=== PATIENT | female | born 1980 | race Caucasian/White ===

== ENCOUNTER 2019-12-14 17:21 | Emergency (ER) | payer OTHER ==
[2019-12-14 17:40] VITALS: BMI 35.6
--- OUTSIDE RECORDS SUMMARY | 2019-12-14 17:51 | XMS ---
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 [Mass/volume] in normal styleCode="Bold"> Hugh hs Serum or Plasma Glucose Medical </content>111 Center MG/DL H<content styleCode="Italic s"> (74-106 MG/DL)</content> Creatinine 0.5-1.3 <content [facility] [Mass/volume] in styleCode="Bold"> Hugh hs Serum or Plasma Creatinine Medical </content>0.7 Center MG/DL<content styleCode="Italic s"> (0.5-1.3 MG/DL)</content> Calcium 8.4-10. <content [facility] [Mass/volume] in 2 styleCode="Bold"> Hugh hs Serum or Plasma Calcium Medical </content>9.6 Center MG/DL<content styleCode="Italic s"> (8.4-10.2 MG/DL)</content> UNK > 60 <content [facility] styleCode="Bold"> Stewart EGFR </content>99 Medical GFR<content Center styleCode="Italic s"> (> 60 GFR)</content> Aspartate 14-36 <content [facility] aminotransferase styleCode="Bold"> Hugh hs [Enzymatic Aspartate Medical activity/volume] Aminotransferase Center in Serum or Plasma (AST) </content>25 IU/L<content styleCode="Italic s"> (14-36 IU/L)</content> Albumin 3.5-5.0 <content [facility] [Mass/volume] in styleCode="Bold"> Hugh hs Serum or Plasma Albumin Medical </content>4.0 Center G/DL<content styleCode="Italic s"> (3.5-5.0 G/DL)</content> Alkaline 38-126 <content [facility] phosphatase styleCode="Bold"> Stewart [Enzymatic Alkaline Medical activity/volume] Phosphatase (ALP) Cente r in Serum or Plasma </content>66 IU/L<content styleCode="Italic s"> (38-126 IU/L)</content> Alanine 7-30 <content [facility] aminotransferase styleCode="Bold"> Hugh hs [Enzymatic Alanine Medical activity/volume] Aminotransferase Center in Serum or Plasma (ALT) </content>22 IU/L<content styleCode="Italic s"> (7-30 IU/L)</content> Bilirubin.total 0.2-1.3 <content [facility] [Mass/volume] in styleCode="Bold"> Hugh hs Serum or Plasma Bilirubin Total Medical </content>0.3 Center MG/DL<content styleCode="Italic s"> (0.2-1.3 MG/DL)</content> ID Date Data Source [id number] 09/04/2019 09:24:53 AM EDT [facility]I [facility] ([id number]) Name Value Range Interpretation Code Description Data Nano rce(s) Supporting Document(s ) 148 whole blood NEXTGEN ([facility]) ID Date Data Source Liver 08/11/2019 03:03:00 PM EDT [facility] Profile.[id number] Name Value Range Interpretation Description Data Sup porting Code Source(s) Document(s ) Bilirubin.total 0.2-1.3 Below low <content [facility] [Mass/volume] in normal styleCode="Bold"> Hugh hs Serum or Plasma Bilirubin Total Medical </content>< 0.2 Center MG/DL L<content styleCode="Italic s"> (0.2-1.3 MG/DL)</content> Aspartate 14-36 <content [facility] aminotransferase styleCode="Bold"> Hugh hs [Enzymatic Aspartate Medical activity/volume] Aminotransferase Center in Serum or Plasma (AST) </content>23 IU/L<content styleCode="Italic s"> (14-36 IU/L)</content> Alanine 7-30 <content [facility] aminotransferase styleCode="Bold"> Hugh hs [Enzymatic Alanine Medical activity/volume] Aminotransferase Center in Serum or Plasma (ALT) </content>21 IU/L<content styleCode="Italic s"> (7-30 IU/L)</content> Alkaline 38-126 <content [facility] phosphatase styleCode="Bold"> Stewart [Enzymatic Alkaline Medical activity/volume] Phosphatase (ALP) Cente r in Serum or Plasma </content>77 IU/L<content styleCode="Italic s"> (38-126 IU/L)</content> Albumin 3.5-5.0 <content [facility] [Mass/volume] in styleCode="Bold"> Hugh hs Serum or Plasma Albumin Medical </content>4.0 Center G/DL<content styleCode="Italic s"> (3.5-5.0 G/DL)</content> ID Date Data Source LIPID.[id number] 08/11/2019 03:03:00 PM EDT [facility] Name Value Range Interpretation Description Data Sup porting Code Source(s) Document(s ) UNK <content [facility] styleCode="Bold"> Stewart LDL-Cholesterol Medical </content> Center (Reference Range: not available)
<c ontent styleCode="xLocal PreformattedText" >Triglycerides are >250 mg/dl; therefore, the LDL calculation is invalid.
Chol esterol electrophoresis is recommended if medically appropriate.</con tent> Cholesterol -<200 <content [facility] [Mass/volume] styleCode="Bold"> Stewart in Serum or Cholesterol Medical Plasma </content>193 Center MG/DL<content styleCode="Italic s"> (-<200 MG/DL)</content> UNK > 60 Below low normal <content [facility] styleCode="Bold"> Stewart HDL- Cholesterol Medical </content>31 Center MG/DL L<content styleCode="Italic s"> (> 60 MG/DL)</content> Triglyceride < 150 Above high normal <content [facility] [Mass/volume] styleCode="Bold"> Stewart in Serum or Triglycerides Medical Plasma </content>335 Center MG/DL H<content styleCode="Italic s"> (< 150 MG/DL)</content> ID Date Data Source Hormones.[id number] 08/11/2019 03:03:00 PM EDT [facility] t [facility] Name Value Range Interpretation Description Data Sup porting Code Source(s) Document(s ) Thyrotropin 0.465-4. <content [facility] [Units/volume] 68 styleCode="Haider Stewart in Serum or d">Thyroid Medical Plasma by Stimulating Center Detection Hormone limit <= 0.05 </content>1.22 mIU/L MIU/L<content styleCode="Bree lics"> (0.465-4.68 MIU/L)</conten t> ID Date Data Source HematologyRou.[id number] 08/11/2019 03:03:00 PM EDT [facility] nt [facility] 0400 Name Value Range Interpretation Description Data Sup porting Code Source(s) Document(s ) Leukocytes 4.4-11.0 <content [facility] [#/volume] in styleCode="Bold Stewart Blood by ">White Blood Medical Automated count Cell Count Center </content>8.84 KCUMM<content styleCode="Ital ics"> (4.4-11.0 KCUMM)</content > Hematocrit 36.0-46. <content [facility] [Volume 0 styleCode="Bold Stewart Fraction] of ">Hematocrit Medical Blood by </content>43.6 Center Automated count %<content styleCode="Ital ics"> (36.0-46.0 %)</content> Erythrocytes 4.0-5.1 Above high <content [facility] [#/volume] in normal styleCode="Bold Stewart Blood by ">Red Blood Medical Automated count Cell Count Center </content>5.21 MCUMM H<content styleCode="Ital ics"> (4.0-5.1 MCUMM)</content > Erythrocyte mean 80.0-100 <content [facility] corpuscular .0 styleCode="Bold Stewart volume [Entitic ">Mean Medical volume] by Corpuscular Center Automated count Volume </content>83.7 FL<content styleCode="Ital ics"> (80.0-100.0 FL)</content> Hemoglobin 12.3-16. <content [facility] [Mass/volume] in 0 styleCode="Bold Stewart Blood ">Hemoglobin Medical </content>13.7 Center G/DL<content styleCode="Ital ics"> (12.3-16.0 G/DL)</content> Platelets 130-400 <content [facility] [#/volume] in styleCode="Bold Stewart Blood by ">Platelet Medical Automated count Count Center </content>263 KCUMM<content styleCode="Ital ics"> (130-400 KCUMM)</content > Erythrocyte mean 26.0-34. <content [facility] corpuscular 0 styleCode="Bold Stewart hemoglobin ">Mean Medical [Entitic mass] Corposcular Center by Automated Hemoglobin count </content>26.3 PG<content styleCode="Ital ics"> (26.0-34.0 PG)</content> Erythrocyte mean 32.0-37. Below low normal <content [facility] corpuscular 0 styleCode="Bold Stewart hemoglobin ">Mean Corpus. Medical concentration Hgb Center [Mass/volume] by Concentration Automated count (MCHC) </content>31.4 G/DL L<content styleCode="Ital ics"> (32.0-37.0 G/DL)</content> Platelet mean 8.0-11.0 Above high <content [facility] volume [Entitic normal styleCode="Bold Stewart volume] in Blood ">Mean Platelet Medical by Automated Volume Center count </content>12.2 FL H<content styleCode="Ital ics"> (8.0-11.0 FL)</content> Erythrocyte 11.5-14. <content [facility] distribution 5 styleCode="Bold Stewart width [Ratio] by ">Red Cell Medical Automated count Distribution Center Width </content>14.1 %<content styleCode="Ital ics"> (11.5-14.5 %)</content> Neutrophils 36-66 <content [facility] [#/volume] in styleCode="Bold Stewart Blood by ">Neutrophil Medical Automated count </content>65.2 Center %<content styleCode="Ital ics"> (36-66 %)</content> Lymphocytes 24.0-44. <content [facility] [#/volume] in 0 styleCode="Bold Stewart Blood by ">Lymphocyte Medical Automated count </content>27.1 Center %<content styleCode="Ital ics"> (24.0-44.0 %)</content> UNK 1.6-7.3 <content [facility] styleCode="Bold Stewart ">Neutrophil Medical Count Center </content>5.76 KCUMM<content styleCode="Ital ics"> (1.6-7.3 KCUMM)</content > UNK 1.0-4.8 <content [facility] styleCode="Bold Stewart ">Lymphocyte Medical Count Center </content>2.40 KCUMM<content styleCode="Ital ics"> (1.0-4.8 KCUMM)</content > UNK 0.0-0.6 <content [facility] styleCode="Bold Stewart ">Eosinophil Medical Count Center </content>0.09 KCUMM<content styleCode="Ital ics"> (0.0-0.6 KCUMM)</content > Monocytes 3.0-10.0 <content [facility] [#/volume] in styleCode="Bold Stewart Blood by ">Monocyte Medical Automated count </content>6.1 Center %<content styleCode="Ital ics"> (3.0-10.0 %)</content> Eosinophils 0-5.0 <content [facility] [#/volume] in styleCode="Bold Stewart Blood by ">Eosinophil Medical Automated count </content>1.0 Center %<content styleCode="Ital ics"> (0-5.0 %)</content> Basophils 0.0-1.0 <content [facility] [#/volume] in styleCode="Bold Stewart Blood by ">Basophil Medical Automated count </content>0.1 Center %<content styleCode="Ital ics"> (0.0-1.0 %)</content> UNK 0.2-0.9 <content [facility] styleCode="Bold Stewart ">Monocyte Medical Count Center </content>0.54 KCUMM<content styleCode="Ital ics"> (0.2-0.9 KCUMM)</content > UNK 0-0.1 <content [facility] styleCode="Bold Stewart ">Immature Medical Granulocyte Center Count </content>0.04 KCUMM<content styleCode="Ital ics"> (0-0.1 KCUMM)</content > UNK 0.0-0.3 <content [facility] styleCode="Bold Stewart ">Basophil Medical Count Center </content>0.01 KCUMM<content styleCode="Ital ics"> (0.0-0.3 KCUMM)</content > UNK 0 <content [facility] styleCode="Bold Stewart ">Nucleated Red Medical Blood Cell Center </content>0.0 /100<content styleCode="Ital ics"> (0 /100)</content> UNK 0.0 <content [facility] styleCode="Bold Stewart ">Nucleated Red Medical Blood Cell Center Count </content>0.00 KCUMM<content styleCode="Ital ics"> (0.0 KCUMM)</content > UNK < 1 <content [facility] styleCode="Bold Stewart ">Immature Medical Granulocyte Center Ratio </content>0.5 %<content styleCode="Ital ics"> (< 1 %)</content> ID Date Data Source GFR(Creatinine).[id number] 08/11/2019 03:03:00 PM EDT [facility] 0-0400 Name Value Range Interpretation Code Description Data Nano rce(s) Supporting Document(s ) UNK > 60 <content [facility] styleCode="Bold"> Medical Cent er EGFR </content>84 GFR<content styleCode="Italic s"> (> 60 GFR)</content> ID Date Data Source CHMROUTINECCDA.[id number] 08/11/2019 03:03:00 PM EDT [facility] -0400 Name Value Range Interpretation Description Data Sup porting Code Source(s) Document(s ) UNK 4.2-5.8 Above high normal <content [facility] styleCode="Bold Medical ">Hemoglobin Center A1C </content>6.7 % H<content styleCode="Ital ics"> (4.2-5.8 %)</content> UNK >= 1.0 <content [facility] styleCode="Bold Medical ">AG Ratio Center </content>1.5 <content styleCode="Ital ics"> (>= 1.0 )</content> UNK 2.3-3.5 <content [facility] styleCode="Bold Medical ">Globulin Center </content>2.6 G/DL<content styleCode="Ital ics"> (2.3-3.5 G/DL)</content> Protein 6.3-8.2 <content [facility] [Mass/volum styleCode="Bold Medical e] in Serum ">Total Protein Center or Plasma </content>6.6 G/DL<content styleCode="Ital ics"> (6.3-8.2 G/DL)</content> ID Date Data Source [facility].[id number] 08/11/2019 03:03:00 PM EDT [facility] Name Value Range Interpretation Description Data Sup porting Code Source(s) Document(s ) Sodium 137-145 <content [facility] [Moles/volume] in styleCode="Bold"> Yosi phs Serum or Plasma Sodium Medical </content>137 Center MEQ/L<content styleCode="Italic s"> (137-145 MEQ/L)</content> Creatinine 0.5-1.3 <content [facility] [Mass/volume] in styleCode="Bold"> Hugh hs Serum or Plasma Creatinine Medical </content>0.8 Center MG/DL<content styleCode="Italic s"> (0.5-1.3 MG/DL)</content> Carbon dioxide, 22-30 <content [facility] total styleCode="Bold"> Stewart [Moles/volume] in Carbon Dioxide Medical Serum or Plasma </content>26 Center MEQ/L<content styleCode="Italic s"> (22-30 MEQ/L)</content> Potassium 3.5-5.3 <content [facility] [Moles/volume] in styleCode="Bold"> Yosi phs Serum or Plasma Potassium Medical </content>4.1 Center MEQ/L<content styleCode="Italic s"> (3.5-5.3 MEQ/L)</content> UNK 7-17 <content [facility] styleCode="Bold"> Stewart BUN </content>10 Medical MG/DL<content Center styleCode="Italic s"> (7-17 MG/DL)</content> Chloride 98-107 <content [facility] [Moles/volume] in styleCode="Bold"> Yosi phs Serum or Plasma Chloride Medical </content>103 Center MEQ/L<content styleCode="Italic s"> (98-107 MEQ/L)</content> UNK > 60 <content [facility] styleCode="Bold"> Stewart EGFR </content>84 Medical GFR<content Center styleCode="Italic s"> (> 60 GFR)</content> Calcium 8.4-10. <content [facility] [Mass/volume] in 2 styleCode="Bold"> Hugh hs Serum or Plasma Calcium Medical </content>9.6 Center MG/DL<content styleCode="Italic s"> (8.4-10.2 MG/DL)</content> Glucose 74-106 <content [facility] [Mass/volume] in styleCode="Bold"> Hugh hs Serum or Plasma Glucose Medical </content>101 Center MG/DL<content styleCode="Italic s"> (74-106 MG/DL)</content> Aspartate 14-36 <content [facility] aminotransferase styleCode="Bold"> Hugh hs [Enzymatic Aspartate Medical activity/volume] Aminotransferase Center in Serum or Plasma (AST) </content>23 IU/L<content styleCode="Italic s"> (14-36 IU/L)</content> Albumin 3.5-5.0 <content [facility] [Mass/volume] in styleCode="Bold"> Hugh hs Serum or Plasma Albumin Medical </content>4.0 Center G/DL<content styleCode="Italic s"> (3.5-5.0 G/DL)</content> Bilirubin.total 0.2-1.3 Below low <content [facility] [Mass/volume] in normal styleCode="Bold"> Hugh hs Serum or Plasma Bilirubin Total Medical </content>< 0.2 Center MG/DL L<content styleCode="Italic s"> (0.2-1.3 MG/DL)</content> Alanine 7-30 <content [facility] aminotransferase styleCode="Bold"> Hugh hs [Enzymatic Alanine Medical activity/volume] Aminotransferase Center in Serum or Plasma (ALT) </content>21 IU/L<content styleCode="Italic s"> (7-30 IU/L)</content> Alkaline 38-126 <content [facility] phosphatase styleCode="Bold"> Stewart [Enzymatic Alkaline Medical activity/volume] Phosphatase (ALP) Cente r in Serum or Plasma </content>77 IU/L<content styleCode="Italic s"> (38-126 IU/L)</content> ID Date Data Source [id number] 08/11/2019 02:37:39 PM EDT [facility]EXTG EN ([facility] [id number] [place]) Name Value Range Interpretation Description Data Sup porting Code Source(s) Document(s ) Choriogonadotropin negative Urine NEXTGEN ( test) ([facility] [Presence] in Urine Test [facility]) ID Date Data Source Liver Profile 07/22/2018 11:06:00 PM EDT [facility] Name Value Range Interpretation Description Data Sup porting Code Source(s) Document(s ) Alkaline 38-126 <content [facility] phosphatase styleCode="Bold"> Stewart [Enzymatic Alkaline Medical activity/volume] Phosphatase (ALP) Cente r in Serum or Plasma </content>76 IU/L<content styleCode="Italic s"> (38-126 IU/L)</content> Aspartate 14-36 <content [facility] aminotransferase styleCode="Bold"> Hugh hs [Enzymatic Aspartate Medical activity/volume] Aminotransferase Center in Serum or Plasma (AST) </content>20 IU/L<content styleCode="Italic s"> (14-36 IU/L)</content> Alanine 7-30 <content [facility] aminotransferase styleCode="Bold"> Hugh hs [Enzymatic Alanine Medical activity/volume] Aminotransferase Center in Serum or Plasma (ALT) </content>30 IU/L<content styleCode="Italic s"> (7-30 IU/L)</content> Albumin 3.5-5.0 <content [facility] [Mass/volume] in styleCode="Bold"> Hugh hs Serum or Plasma Albumin Medical </content>3.6 Center G/DL<content styleCode="Italic s"> (3.5-5.0 G/DL)</content> Bilirubin.total 0.2-1.3 Below low <content [facility] [Mass/volume] in normal styleCode="Bold"> Hugh hs Serum or Plasma Bilirubin Total Medical </content>< 0.2 Center MG/DL L<content styleCode="Italic s"> (0.2-1.3 MG/DL)</content> ID Date Data Source HematologyRou 07/22/2018 11:06:00 PM EDT [facility] Name Value Range Interpretation Description Data Sup porting Code Source(s) Document(s ) Erythrocytes 4.0-5.1 Above high <content [facility] [#/volume] in normal styleCode="Bold Stewart Blood by ">Red Blood Medical Automated count Cell Count Center </content>5.19 MCUMM H<content styleCode="Ital ics"> (4.0-5.1 MCUMM)</content > Hemoglobin 12.3-16. <content [facility] [Mass/volume] in 0 styleCode="Bold Stewart Blood ">Hemoglobin Medical </content>13.8 Center G/DL<content styleCode="Ital ics"> (12.3-16.0 G/DL)</content> Leukocytes 4.4-11.0 <content [facility] [#/volume] in styleCode="Bold Stewart Blood by ">White Blood Medical Automated count Cell Count Center </content>9.88 KCUMM<content styleCode="Ital ics"> (4.4-11.0 KCUMM)</content > Erythrocyte mean 32.0-37. <content [facility] corpuscular 0 styleCode="Bold Stewart hemoglobin ">Mean Corpus. Medical concentration Hgb Center [Mass/volume] by Concentration Automated count (MCHC) </content>32.9 G/DL<content styleCode="Ital ics"> (32.0-37.0 G/DL)</content> Hematocrit 36.0-46. <content [facility] [Volume 0 styleCode="Bold Stewart Fraction] of ">Hematocrit Medical Blood by </content>41.9 Center Automated count %<content styleCode="Ital ics"> (36.0-46.0 %)</content> Platelets 130-400 <content [facility] [#/volume] in styleCode="Bold Stewart Blood by ">Platelet Medical Automated count Count Center </content>266 KCUMM<content styleCode="Ital ics"> (130-400 KCUMM)</content > Erythrocyte mean 80.0-100 <content [facility] corpuscular .0 styleCode="Bold Stewart volume [Entitic ">Mean Medical volume] by Corpuscular Center Automated count Volume </content>80.7 FL<content styleCode="Ital ics"> (80.0-100.0 FL)</content> Erythrocyte 11.5-14. <content [facility] distribution 5 styleCode="Bold Stewart width [Ratio] by ">Red Cell Medical Automated count Distribution Center Width </content>13.5 %<content styleCode="Ital ics"> (11.5-14.5 %)</content> Erythrocyte mean 26.0-34. <content [facility] corpuscular 0 styleCode="Bold Stewart hemoglobin ">Mean Medical [Entitic mass] Corposcular Center by Automated Hemoglobin count </content>26.6 PG<content styleCode="Ital ics"> (26.0-34.0 PG)</content> UNK 0 <content [facility] styleCode="Bold Stewart ">Nucleated Red Medical Blood Cell Center </content>0.0 /100<content styleCode="Ital ics"> (0 /100)</content> Platelet mean 8.0-11.0 Above high <content [facility] volume [Entitic normal styleCode="Bold Stewart volume] in Blood ">Mean Platelet Medical by Automated Volume Center count </content>11.4 FL H<content styleCode="Ital ics"> (8.0-11.0 FL)</content> UNK 0.0 <content [facility] styleCode="Bold Stewart ">Nucleated Red Medical Blood Cell Center Count </content>0.00 KCUMM<content styleCode="Ital ics"> (0.0 KCUMM)</content > ID Date Data Source GFR(Creatinine) 07/22/2018 11:06:00 PM EDT [facility] Name Value Range Interpretation Code Description Data Nano rce(s) Supporting Document(s ) UNK > 60 <content [facility] styleCode="Bold"> Medical Cent er EGFR </content>118 GFR<content styleCode="Italic s"> (> 60 GFR)</content> ID Date Data Source CHMROUTINECCDA 07/22/2018 11:06:00 PM EDT [facility] Name Value Range Interpretation Description Data Sup porting Code Source(s) Document(s ) UNK >= 1.0 <content [facility] styleCode="Bold Stewart ">AG Ratio Medical </content>1.4 Center <content styleCode="Ital ics"> (>= 1.0 )</content> UNK 2.3-3.5 <content [facility] styleCode="Bold Stewart ">Globulin Medical </content>2.6 Center G/DL<content styleCode="Ital ics"> (2.3-3.5 G/DL)</content> UNK NEGATIVE <content Saint styleCode="Bold Stewart ">Acetone Medical </content>NEGAT Center BURT <content styleCode="Ital ics"> (NEGATIVE )</content> Protein 6.3-8.2 Below low normal <content Saint [Mass/volum styleCode="Bold Stewart e] in Serum ">Total Protein Medical or Plasma </content>6.2 Center G/DL L<content styleCode="Ital ics"> (6.3-8.2 G/DL)</content> ID Date Data Source BMP 07/22/2018 11:06:00 PM EDT [facility] Name Value Range Interpretation Description Data Sup porting Code Source(s) Document(s ) Potassium 3.5-5.3 <content Saint [Moles/volume] in styleCode="Bold"> [facility] Serum or Plasma Potassium Medical </content>4.4 Center MEQ/L<content styleCode="Italic s"> (3.5-5.3 MEQ/L)</content> Sodium 137-145 <content [facility] [Moles/volume] in styleCode="Bold"> [facility] Serum or Plasma Sodium Medical </content>137 Center MEQ/L<content styleCode="Italic s"> (137-145 MEQ/L)</content> Glucose 74-106 Above high <content Saint [Mass/volume] in normal styleCode="Bold"> [facility] Serum or Plasma Glucose Medical </content>171 Center MG/DL H<content styleCode="Italic s"> (74-106 MG/DL)</content> UNK 7-17 <content Saint styleCode="Bold"> [facility] BUN </content>10 Medical MG/DL<content Center styleCode="Italic s"> (7-17 MG/DL)</content> Chloride 98-107 <content Saint [Moles/volume] in styleCode="Bold"> [facility] Serum or Plasma Chloride Medical </content>103 Center MEQ/L<content styleCode="Italic s"> (98-107 MEQ/L)</content> Calcium 8.4-10. <content Saint [Mass/volume] in 2 styleCode="Bold"> [facility] Serum or Plasma Calcium Medical </content>9.4 Center MG/DL<content styleCode="Italic s"> (8.4-10.2 MG/DL)</content> Creatinine 0.5-1.3 <content [facility] [Mass/volume] in styleCode="Bold"> [facility] Serum or Plasma Creatinine Medical </content>0.6 Center MG/DL<content styleCode="Italic s"> (0.5-1.3 MG/DL)</content> Carbon dioxide, 22-30 <content Saint total styleCode="Bold"> [facility] [Moles/volume] in Carbon Dioxide Medical Serum or Plasma </content>28 Center MEQ/L<content styleCode="Italic s"> (22-30 MEQ/L)</content> Alkaline 38-126 <content [facility] phosphatase styleCode="Bold"> [facility] [Enzymatic Alkaline Medical activity/volume] Phosphatase (ALP) Cente r in Serum or Plasma </content>76 IU/L<content styleCode="Italic s"> (38-126 IU/L)</content> Alanine 7-30 <content [facility] aminotransferase styleCode="Bold"> [facility] [Enzymatic Alanine Medical activity/volume] Aminotransferase Center in Serum or Plasma (ALT) </content>30 IU/L<content styleCode="Italic s"> (7-30 IU/L)</content> Aspartate 14-36 <content [facility] aminotransferase styleCode="Bold"> [facility] [Enzymatic Aspartate Medical activity/volume] Aminotransferase Center in Serum or Plasma (AST) </content>20 IU/L<content styleCode="Italic s"> (14-36 IU/L)</content> UNK > 60 <content Saint styleCode="Bold"> [facility] EGFR Medical </content>118 Center GFR<content styleCode="Italic s"> (> 60 GFR)</content> Bilirubin.total 0.2-1.3 Below low <content [facility] [Mass/volume] in normal styleCode="Bold"> [facility] Serum or Plasma Bilirubin Total Medical </content>< 0.2 Center MG/DL L<content styleCode="Italic s"> (0.2-1.3 MG/DL)</content> Albumin 3.5-5.0 <content [facility] [Mass/volume] in styleCode="Bold"> [facility] Serum or Plasma Albumin Medical </content>3.6 Center G/DL<content styleCode="Italic s"> (3.5-5.0 G/DL)</content> Procedure Social History Code Duration Value Status Description Data Source(s ) Caffeine Use 12/03/2019 completed NEXTGEN ([place] [facility] 12:00:00 AM EDT [facility]) Smoking 12/03/2019 Unknown if completed Unknown if ever NEXTGEN ( [facility] 12:00:00 AM EDT ever smoked smoked [facility]) 11/26/2019 Ex-cigarette completed Ex-cigarette NEXTGEN (S aint 12:00:00 AM EDT smoker smoker [facility]) Smoking 11/06/2019 Daily Smoker completed Daily Smoker [facility] 01:23:00 AM EDT Medical C enter Smoking 11/06/2019 Daily Smoker completed Daily Smoker [facility] 12:16:00 AM EDT Medical C enter Smoking 11/06/2019 Daily Smoker completed Daily Smoker [facility] 12:14:00 AM EDT Medical C enter Caffeine Use 10/29/2019 completed NEXTGEN ([place] [facility] 12:00:00 AM EDT [facility]) Smoking 08/30/2019 Denies Ever completed Denies Ever [place] [facility] 08:35:00 PM EDT Smoked Smoked Medical C enter Smoking 08/30/2019 Denies Ever completed Denies Ever [place] [facility] 08:17:00 PM EDT Smoked Smoked Medical C enter Smoking 08/30/2019 Denies Ever completed Denies Ever [place] [facility] 08:01:00 PM EDT Smoked Smoked Medical C enter Smoking 06/02/2019 Denies Ever completed Denies Ever [place] [facility] 07:28:00 PM EDT Smoked Smoked Medical C enter Smoking 06/02/2019 Denies Ever completed Denies Ever [place] 07:22:00 PM EDT Smoked Smoked Medical C enter Smoking 06/02/2019 Denies Ever completed Denies Ever [place] [facility] 06:59:00 PM EDT Smoked Smoked Medical C enter Smoking 07/22/2018 Denies Ever completed Denies Ever [place] [facility] 11:43:00 PM EDT Smoked Smoked Medical C enter Smoking 07/22/2018 Denies Ever completed Denies Ever [place] [facility] 10:50:00 PM EDT Smoked Smoked Medical C enter Smoking 07/22/2018 Denies Ever completed Denies Ever [place] [facility] 09:31:00 PM EDT Smoked Smoked Medical C enter Alcohol Use completed NEXTGEN ([facility]phanie t Details [facility]) Smoking Unknown if completed Unknown if ever [facility] ever smoked smoked Medical Cente r Vital Signs ID Date Data Source UNK Name Value Range Interpretation Code Description Data Source(s) Oxygen saturation 97 % 97 % [facility] ([facility] in Arterial [facility] by Pulse oximetry Center) Body mass index 36.95 kg/m2 Overweight 36.95 kg/m2 [facility] ([facility] (BMI) [Ratio] [facility]) Respiratory rate 20 /min 20 /min [facility] ([facility]) Body temperature 36.67 Adilia 36.67 Adilia [facility] ([facility]) Heart rate 62 /min 62 /min [facility] ([facility]) Diastolic blood 63 mm[Hg] 63 mm[Hg] [facility] ( [facility]) Systolic blood 93 mm[Hg] 93 mm[Hg] [facility] ([facility]) Body weight 91.626 kg 91.626 kg [facility] ([facility]) Body height 157.48 cm 157.48 cm [facility] ([facility]) Body temperature 37.406987 37.520899 [facility] Respiratory rate 17 /min 17 /min [facility] Oxygen saturation 97 % 97 % [facility] Heart rate 70 /min 70 /min [facility] Diastolic blood 87 mm[Hg] 87 mm[Hg] [facility] Systolic blood 124 mm[Hg] 124 mm[Hg] [facility] Oxygen saturation 99 % 99 % [facility] ([facility] Arterial [facility] by Pulse oximetry Center) Body mass index 36.21 kg/m2 Overweight 36.21 kg/m2 [facility] ([facility] (BMI) [Ratio] [facility]) Respiratory rate 18 /min 18 /min [facility] ([facility]) Body temperature 36.89 Adilia 36.89 Adilia [facility] ([facility]) Heart rate 63 /min 63 /min [facility] ([facility]) Diastolic blood 79 mm[Hg] 79 mm[Hg] [facility] ( [facility]) Systolic blood 119 mm[Hg] 119 mm[Hg] NEXT[facility] (S aint pressure [facility]) Body weight 89.811 kg 89.811 kg [facility] ([facility]) Body height 157.48 cm 157.48 cm [facility]) Body temperature 36.00 Adilia 36.00 Adilia [facility] ([facility]) Heart rate 72 /min 72 /min [facility] ([facility]) Diastolic blood 75 mm[Hg] 75 mm[Hg] [facility] Systolic blood 123 mm[Hg] 123 mm[Hg] NEXT[facility] (S aint pressure [facility]) Respiratory rate 20 /min 20 /min [facility] ([facility]) Oxygen saturation 97 % 97 % [facility] ([facility] in Arterial blood [facility] by Pulse oximetry Center) Body mass index 36.69 kg/m2 Overweight 36.69 kg/m2 [facility] ([facility] (BMI) [Ratio] [facility]) Respiratory rate 18 /min 18 /min [facility] ([facility]) Body temperature 36.33 Adilia 36.33 Adilia [facility] ([facility]) Heart rate 66 /min 66 /min [facility] ([facility]) Diastolic blood 69 mm[Hg] 69 mm[Hg] [facility] ( [facility]) Systolic blood 106 mm[Hg] 106 mm[Hg] NEXTGEN (S nt pressure [facility]) Body weight 90.991 kg 90.991 kg [facility] ([facility]) Body height 157.48 cm 157.48 cm [facility] ([facility]) Oxygen saturation 95 % 95 % [facility] ([facility] in Arterial blood [facility] by Pulse oximetry Center) Body mass index 36.95 kg/m2 Overweight 36.95 kg/m2 [facility] ([facility] (BMI) [Ratio] [facility]) Respiratory rate 20 /min 20 /min [facility] ([facility]) Body temperature 36.61 Adilia 36.61 Adilia [facility] ([facility]) Heart rate 74 /min 74 /min [facility] ([facility]) Systolic blood 117 mm[Hg] 117 mm[Hg] NEXTGEN (S nt pressure [facility]) Body weight 91.626 kg 91.626 kg [facility] ([facility]) Body height 157.48 cm 157.48 cm [facility] ([facility]) Oxygen saturation 95 % 95 % NEXT[facility] ([facility] in Arterial blood [facility] by Pulse oximetry Center) Body mass index 37.69 kg/m2 Overweight 37.69 kg/m2 [facility] ([facility] (BMI) [Ratio] [facility]) Respiratory rate 20 /min 20 /min [facility] ([facility]) Body temperature 37.00 Adilia 37.00 Adilia [facility] ([facility]) Heart rate 68 /min 68 /min [facility] ([facility]) Diastolic blood 84 mm[Hg] 84 mm[Hg] [facility] ( [facility]) Systolic blood 131 mm[Hg] 131 mm[Hg] [facility] Body weight 92.714 kg 92.714 kg [facility] ([facility]) Body height 156.84 cm 156.84 cm [facility] ([facility]) Oxygen saturation 97 % 97 % [facility]EXT[facility] ([facility] in Arterial blood [facility] by Pulse oximetry Center) Body mass index 39.09 kg/m2 Overweight 39.09 kg/m2 [facility] ([facility] (BMI) [Ratio] [facility]) Respiratory rate 20 /min 20 /min [facility] ([facility]) Body temperature 36.00 Adilia 36.00 Adilia [facility] ([facility]) Heart rate 52 /min 52 /min [facility] ([facility]) Diastolic blood 78 mm[Hg] 78 mm[Hg] [facility] ( [facility]) Systolic blood 117 mm[Hg] 117 mm[Hg] NEXTGEN (S nt pressure [facility]) Body weight 96.162 kg 96.162 kg [facility] ([facility]) Body height 156.84 cm 156.84 cm [facility] ([facility]) Body temperature 36.732441 36.223547 [facility] Respiratory rate 17 /min 17 /min [facility] Oxygen saturation 97 % 97 % [facility] Heart rate 81 /min 81 /min [facility] Diastolic blood 71 mm[Hg] 71 mm[Hg] [facility] Systolic blood 125 mm[Hg] 125 mm[Hg] [facility] Body mass index 38.72 kg/m2 Overweight 38.72 kg/m2 [facility] ([facility] (BMI) [Ratio] [facility]) Respiratory rate 18 /min 18 /min [facility] ([facility]) Body temperature 36.28 Adilia 36.28 Adilia [facility] ([facility]) Heart rate 61 /min 61 /min [facility] ([facility]) Diastolic blood 71 mm[Hg] 71 mm[Hg] [facility] ( [facility]) Systolic blood 122 mm[Hg] 122 mm[Hg] [facility] ([facility]) Body weight 95.254 kg 95.254 kg [facility] ([facility]) Body height 156.84 cm 156.84 cm [facility] ([facility]) Oxygen saturation 95 % 95 % [facility] ([facility] Arterial blood [facility] by Pulse oximetry Center) Body mass index 38.54 kg/m2 Overweight 38.54 kg/m2 [facility] ([facility] (BMI) [Ratio] [facility]) Respiratory rate 18 /min 18 /min [facility] ([facility]) Body temperature 36.67 Adilia 36.67 Adilia [facility] ([facility]) Heart rate 90 /min 90 /min [facility] ([facility]) Diastolic blood 71 mm[Hg] 71 mm[Hg] [facility] ( [facility]) Systolic blood 119 mm[Hg] 119 mm[Hg] [facility] ([facility]) Body weight 94.801 kg 94.801 kg [facility] ([facility]) Body height 156.84 cm 156.84 cm [facility] ([facility]) Oxygen saturation 96 % 96 % N[facility] ([facility] in Arterial blood [facility] by Pulse oximetry Center) Body mass index 38.91 kg/m2 Overweight 38.91 kg/m2 [facility] ([facility] (BMI) [Ratio] [facility]) Respiratory rate 18 /min 18 /min [facility] ([facility]) Body temperature 36.39 Adilia 36.39 Adilia [facility] ([facility]) Heart rate 72 /min 72 /min [facility] ([facility]) Diastolic blood 72 mm[Hg] 72 mm[Hg] [facility] ( [facility]) Systolic blood 101 mm[Hg] 101 mm[Hg] [facility] ([facility]) Body weight 95.708 kg 95.708 kg [facility] ([facility]) Body height 156.84 cm 156.84 cm [facility] ([facility]) Body temperature 37.06 Adilia 37.06 Adilia [facility] ([facility]) Respiratory rate 20 /min 20 /min [facility] ([facility]) Body temperature 36.56 Adilia 36.56 Adilia [facility] ([facility]) Heart rate 77 /min 77 /min [facility] ([facility]) Diastolic blood 74 mm[Hg] 74 mm[Hg] [facility] ( [facility]) Systolic blood 106 mm[Hg] 106 mm[Hg] [facility] ([facility] pressure [facility]) Body weight 100.001079 100.686361 kg [facility] Measured kg Medical Center Body temperature 36.790815 36.506260 [facility] Respiratory rate 18 /min 18 /min [facility] Oxygen saturation 98 % 98 % [facility] osep in Arterial blood [facility] by Pulse oximetry Heart rate 73 /min 73 /min [facility] Body height 157.846840 157.533844 cm [facility] [place] Diastolic blood 76 mm[Hg] 76 mm[Hg] [facility] pressure Medical Center Systolic blood 139 mm[Hg] 139 mm[Hg] [facility] Body mass index 40.5 kg/m2 40.5 kg/m2 [facility] (BMI) [Ratio] Medical [address]anda [facility] Body temperature 36.901976 36.010130 [facility] Respiratory rate 18 /min 18 /min [facility] Heart rate 60 /min 60 /min [facility] Diastolic blood 81 mm[Hg] 81 mm[Hg] [facility] pressure [facility] Systolic blood 139 mm[Hg] 139 mm[Hg] [facility] Body temperature 36.602703 36.684764 [facility] Respiratory rate 18 /min 18 /min [facility] Heart rate 57 /min 57 /min [facility] Diastolic blood 91 mm[Hg] 91 mm[Hg] [facility] pressure [facility] Systolic blood 151 mm[Hg] 151 mm[Hg] [facility] Body temperature 37.774108 37.702443 [facility] Respiratory rate 18 /min 18 /min [facility] Oxygen saturation 98 % 98 % [facility] in [facility] blood [facility] by Pulse oximetry Heart rate 63 /min 63 /min [facility] Diastolic blood 96 mm[Hg] 96 mm[Hg] [facility] Systolic blood 176 mm[Hg] 176 mm[Hg] [facility] Patient Treatment Plan of Care Planned Activity Planned Date Details Description Data Source (s) atorvastatin 40 MG Oral 11/26/2019 NEXT GEN (Saint Tablet 12:00:00 AM [facility]) Metformin hydrochloride 500 11/26/2019 NEXTGEN (Saint MG Oral Tablet 12:00:[address] [facility] terconazole 4 MG/ML Vaginal 10/29/2019 NEXTGEN ([facility] Cream 12:00:00 AM [facility]) POLYETHYLENE GLYCOL 3350 10/15/2019 NEX TGEN (Saint 142 MG/ML Oral Solution 12:00:00 AM [facility] [Miralax] [place]) Wrist Brace Medium 10/15/2019 NEXTGEN ( [facility] 12:00:00 AM [facility]) Bacitracin 0.5 UNT/MG 10/15/2019 NEXTGE N (Saint Topical Ointment 12:00:00 AM [facility]) Metformin hydrochloride 500 08/15/2019 NEXTGEN (Saint MG Oral Tablet 12:00:00 AM EDT [facility]) Ibuprofen 800 MG Oral [facility] Cyclobenzaprine [place] [facility] hydrochloride 10 MG Oral Med [facility] Tablet METFORMIN HYDROCHLORIDE 500 [place] MG [facility] Ibuprofen 600 MG Oral [facility] Acetaminophen 300 MG / [facility] butalbital 50 MG / [facility] 40 MG Oral Capsule
--- NOTE | 2019-12-14 18:10 | PDOC ---
History of Present Illness - General Chief Complaint: Pain Stated Complaint: PAIN History Source: Patient Exam Limitations: No Limitations - History of Present Illness Initial Comments: 12/14/19 18:04 Patient is a 39-year-old female with history of DM, HLD, fibroids, status post tonsillectomy, hysteroscopy, myomectomy ( 3-4 weeks ago), BTL, D&C, here with complaints of left flank pain radiating to her suprapubic area which started 1 hour ago. States the pain was sudden onset constant sharp, then throbbing, 10/10 associated with nausea and vomiting. Pain is rated at 10/10 with no alleviating or aggravating factors. No prior history of this type of pain. Denies fever, chills. LMP: Currently menstruating PMHX: as above PSOCHX: ALL: NKDA GENERAL/CONSTITUTIONAL: [No fever or chills. No weakness. No weight change.] HEAD, EYES, EARS, NOSE AND THROAT: [No change in vision. No ear pain or d ischarge. No sore throat.] CARDIOVASCULAR: [No chest pain or shortness of breath.] RESPIRATORY: [No cough, wheezing, or hemoptysis.] GASTROINTESTINAL: [No nausea, vomiting, diarrhea or constipation. No rectal bleeding.] GENITOURINARY: [No dysuria, frequency, or change in urination.] MUSCULOSKELETAL: [No joint or muscle swelling or pain. No neck or back pain.] SKIN AND BREASTS: [No rash or easy bruising.] NEUROLOGIC: [No headache, vertigo, loss of consciousness, or loss of sensation.] PSYCHIATRIC: [No depression or anxiety.] ENDOCRINE: [No increased thirst. No abnormal weight change.] HEMATOLOGIC/LYMPHATIC: [No anemia, easy bleeding, or history of blood clots.] ALLERGIC/IMMUNOLOGIC: [No hives or skin allergy. No latex allergy.] GENERAL: [The patient is awake, alert, and fully oriented, in moderate distress, actively vomiting.] HEAD: [Normal with no signs of trauma.] EYES: [Pupils equal, round and reactive to light, extraocular movements intact, sclera anicteric, conjunctiva clear.] ENT: [Ears normal, nares patent, oropharynx clear without exudates. Moist mucous membranes.] NECK: [Normal range of motion, supple without lymphadenopathy, JVD, or masses.] LUNGS: [Breath sounds equal, clear to auscultation bilaterally. No wheezes, and no crackles.] HEART: [Regular rate and rhythm, normal S1 and S2 without murmur, rub.] ABDOMEN: [Soft, (+) tenderness LLQ, suprapubic, normoactive bowel sounds. No guarding, no rebound. No masses, (+) left CVAT.] EXTREMITIES: [Normal range of motion, no edema. No clubbing or cyanosis. No cords, erythema, or tenderness.] NEUROLOGICAL: [Cranial nerves II through XII grossly intact. Normal speech, normal gait.] PSYCH: [Normal mood, normal affect.] SKIN: [Warm, Dry, normal turgor, no rashes or lesions noted.] Past History - Medical History Allergies/Adverse Reactions: Allergies Allergy/AdvReac Type Severity Reaction Status Date / Time No Known Allergies Allergy Verified 12/14/19 17:40 Home Medications: Ambulatory Orders Ibuprofen [Motrin -] 600 mg PO QID #28 tablet 12/14/19 Oxycodone HCl/Acetaminophen [Percocet 5/325 -] 1 tab PO Q4H #12 tablet MDD 6 12/14/19 Tamsulosin HCl [Flomax] 0.4 mg PO DAILY #7 cap.er.24h 12/14/19 COPD: No - Reproductive History Is Patient Now?: No - Psycho-Social/Smoking History Smoking History: Never smoked *Physical Exam - Vital Signs Last Vital Signs Temp Pulse Resp BP Pulse Ox 98 F 59 L 18 150/97 99 12/14/19 17:38 12/14/19 17:38 12/14/19 17:38 12/14/19 17:38 12/14/19 17:38 ED Treatment Course - LABORATORY CBC & Chemistry Diagram: 12/14/19 18:15 12/14/19 18:15 Medical Decision Making - Medical Decision Making 12/14/19 18:04 Patient is a 39-year-old female with history of DM, HLD, fibroids, status post tonsillectomy, hysteroscopy, myomectomy ( 3-4 weeks ago), BTL, D&C, here with complaints of left flank pain radiating to her suprapubic area which started 1 hour ago. States the pain was sudden onset constant sharp, then throbbing, 10/10 associated with nausea and vomiting. Pain is rated at 10/10 with no alleviating or aggravating factors. No prior history of this type of pain, DDX DDX: Kidney stones most likely, possibly ruptured ovarian cyst, diverticulitis, UTI/pyelonephritis Labs Pain meds, antinausea, IV fluids CT AP Noncon Reassess 12/14/19 18:28 Labs reviewed note normal CBC, and chemistry. 12/14/19 20:13 CT scan reviewed was reported mild left-sided hydronephrosis secondary to a 3 mm urolithiasis in the left distal ureter near the UVJ. In addition there is a couple of tiny nonobstructing nephrolithiasis in the inferior pole of the bilateral kidneys. Flomax 0.4 mg p.o. given Evaluation of the specimen given for UA noticed blood and white blood cells however specimen it was not a clean-catch. Patient does have WBCs on off 12.7 on her CBC however she is afebrile. Urine was sent for culture. I do not think this is an infected stone will treat symptomatically for renal colic. I discussed the physical exam findings, ancillary test results and final diagnoses with the patient. I answered all of the patient's questions. The patient was satisfied with the care received and felt comfortable with the discharge plan and treatment plan. The Patient agrees to follow up with the primary care physician within 24-72 hours. Discharge - Discharge Information Problems reviewed: Yes Clinical Impression/Diagnosis: Renal colic on left side Condition: Stable Disposition: HOME - Additional Discharge Information Prescriptions: Tamsulosin HCl [Flomax] 0.4 mg PO DAILY #7 cap.er.24h Ibuprofen [Motrin -] 600 mg PO QID #28 tablet Oxycodone HCl/Acetaminophen [Percocet 5/325 -] 1 tab PO Q4H #12 tablet MDD 6 - Follow up/Referral Referrals: Segrio Ernandez MD [Staff Physician] - - Patient Discharge Instructions Patient Printed Discharge Instructions: DI for Kidney Stones Additional Instructions: Your Discharge Instructions: You must call primary care physician within 24 hours to arrange follow-up. Return to the Emergency Department with any new, persistent or worsening symptoms, for fever, chills, SOB, dizziness or any other concerning changes that may occur. Follow-up with urology call for an appointment. If you catch a st one you must presented to urology for stone evaluation. - Post Discharge Activity
[2019-12-14] MEDS ORDERED: KETOROLAC TROMETHAMINE 30 MG/1 ML VIAL ONE (18:11)
[2019-12-14] MEDS ORDERED: MORPHINE SULFATE 2 MG/ML VIAL ONE ×2 (18:11→18:49)
[2019-12-14] MEDS ORDERED: SODIUM CHLORIDE 0.9% 500 ML INFUS.BAG IV ONE ×2 (18:12→20:19)
[2019-12-14] MEDS ORDERED: KETOROLAC TROMETHAMINE 30 MG/1 ML VIAL IVPUSH ONE (18:12)
[2019-12-14] MEDS ORDERED: ONDANSETRON 4 MG/2 ML VIAL IVPUSH ONE (18:12)
[2019-12-14] MEDS ORDERED: morphine CARPU-JECT 2 MG/1 ML DISP.SYRIN IVPUSH ONE ×2 (18:12→18:35)
[2019-12-14 18:35] LABS: BASO % 0.9 % (0-2.0); EOS % 1.5 % (0-4.5); HEMATOCRIT 40.2 % (32.4-45.2); HEMOGLOBIN 13.5 GM/dL (10.7-15.3); LYMPH % 20.1 % (8-40); MCH 27.4 pg (25.7-33.7); MCHC 33.5 g/dl (32.0-36.0); MEAN CELL VOLUME 81.6 fl (80-96); MEAN PLT VOLUME 10.1 fl (7.5-11.1); MONO % 5.6 % (3.8-10.2); NEUT % 71.9 % (42.8-82.8); PLATELET COUNT 244 K/MM3 (134-434); RBC 4.93 M/mm3 (3.60-5.2); RDW 14.2 % (11.6-15.6); WHITE BLOOD COUNT 12.7 K/mm3 (4.0-10.0)
[2019-12-14 18:48] LABS: HCG,QUALITATIVE URINE Negative
[2019-12-14 18:49] LABS: EPI CELLS 11 /uL (0-25.1); HYALINE CASTS 1 /uL (0-3.1); PH,URINE 5.5 (5.0-8.0); URINE APPEARANCE CLOUDY; URINE BACTERIA 25 /uL (0-1359); URINE BILIRUBIN NEGATIVE (NEGATIVE); URINE COLOR YELLOW; URINE GLUCOSE (UA) NEGATIVE (NEGATIVE); URINE KETONE TRACE (NEGATIVE); URINE LEUK ESTERASE NEGATIVE (NEGATIVE); URINE NITRITE NEGATIVE (NEGATIVE); URINE PROTEIN 1+ (NEGATIVE); URINE RBC 1871 /uL (0-23.9); URINE WBC 24 /uL (0-25.8)
[2019-12-14 19:48] LABS: URINE CRYSTALS CRYSTALS PRESENT. /hpf
[2019-12-14 19:56] LABS: ALBUMIN 3.7 g/dl (3.4-5.0); BILIRUBIN,TOTAL 0.3 mg/dL (0.2-1); BLOOD UREA NITROGEN 10.1 mg/dL (7-18); CALCIUM 9.1 mg/dL (8.5-10.1); CREATININE 0.9 mg/dL (0.55-1.3); POTASSIUM 4.5 mmol/L (3.5-5.1); TOT PROT 6.6 g/dl (6.4-8.2)
[2019-12-14] MEDS ORDERED: TAMSULOSIN HCL 0.4 MG CAP PO ONE (20:20)
[2019-12-14] MEDS ORDERED: TAMSULOSIN HCL 0.4 MG CAP ONE (20:23)
[2019-12-14 20:49] VITALS: BP 141/87; PULSE 61; TEMP 98.2
== END 2019-12-14 22:00 | disposition home or self-care (01) ==
LOC: JER 17:21
PROC: 3E033NZ Introduction of Analgesics, Hypnotics, Sedatives into Peripheral Vein, Percutaneous Approach (ICD-10-PCS; principal; 2019-12-14)
PROC: 3E033GC Introduction of Other Therapeutic Substance into Peripheral Vein, Percutaneous Approach (ICD-10-PCS; 2019-12-14)
DX: N23 Unspecified renal colic (principal)
CPT/HCPCS: 36415; 74176-TC; 80053; 81003; 84703; 85025; 87086; 99284-25

== ENCOUNTER 2020-02-02 12:57 | Emergency (ER) | payer OTHER ==
[2020-02-02 13:14] VITALS: BP 139/85; PULSE 73; TEMP 98.8; BMI 34.7
[2020-02-02 14:26] LABS: BASO % 0.5 % (0-2.0); EOS % 1.9 % (0-4.5); HEMATOCRIT 43.4 % (32.4-45.2); HEMOGLOBIN 14.4 GM/dL (10.7-15.3); LYMPH % 22.2 % (8-40); MCH 27.2 pg (25.7-33.7); MCHC 33.2 g/dl (32.0-36.0); MEAN PLT VOLUME 10.1 fl (7.5-11.1); MONO % 6.3 % (3.8-10.2); NEUT % 69.1 % (42.8-82.8); PLATELET COUNT 284 K/MM3 (134-434); RBC 5.29 M/mm3 (3.60-5.2)
[2020-02-02 14:37] LABS: INR 0.94 (0.83-1.09); PROTHROMBIN TIME (PATIENT) 11.6 SEC (9.7-13.0)
[2020-02-02 14:52] LABS: POTASSIUM 5.1 mmol/L (3.5-5.1)
[2020-02-02 14:54] LABS: ALBUMIN 3.8 g/dl (3.4-5.0); BLOOD UREA NITROGEN 7.2 mg/dL (7-18); CALCIUM 9.6 mg/dL (8.5-10.1)
[2020-02-02 14:58] LABS: CREATININE 0.7 mg/dL (0.55-1.3)
[2020-02-02 14:59] LABS: BILIRUBIN,TOTAL 0.6 mg/dL (0.2-1); TOT PROT 7.3 g/dl (6.4-8.2)
[2020-02-02] MEDS ORDERED: ACETAMINOPHEN 1000 MG/100 ML VIAL (NON FORMULARY) IVPB ONE (15:02)
[2020-02-02] MEDS ORDERED: SODIUM CHLORIDE 1,000 ML IV STA (15:02)
[2020-02-02] MEDS ORDERED: ACETAMINOPHEN INJECTION 100 ML IVPB ONE (15:30)
== END 2020-02-02 16:12 | disposition home or self-care (01) ==
LOC: JER 12:57
PROC: 3E0333Z Introduction of Anti-inflammatory into Peripheral Vein, Percutaneous Approach (ICD-10-PCS; principal; 2020-02-02)
PROC: 3E0337Z Introduction of Electrolytic and Water Balance Substance into Peripheral Vein, Percutaneous Approach (ICD-10-PCS; 2020-02-02)
DX: N23 Unspecified renal colic (principal); R10.9 Unspecified abdominal pain
CPT/HCPCS: 36415; 74176-TC; 80053; 84703; 85025; 85610; 99284-25; J0131